=== PATIENT | female | born 1985 | race African-American/Black ===

== ENCOUNTER 2023-04-07 15:09 | Emergency (ER) | payer MEDICAID ==
[~2023-04-07] VITALS: Ht 162.6 cm; Wt 65.0 kg
[2023-04-07 15:14] VITALS: BP 104/50; PULSE 55; RESP 18; TEMP 98.2; O2SAT 98
== END 2023-04-07 15:30 | disposition left against medical advice (07) ==
LOC: ER 15:09
DX: R50.9 Fever, unspecified (principal); F14.90 Cocaine use, unspecified, uncomplicated; Z98.890 Other specified postprocedural states
CPT/HCPCS: 99283